=== PATIENT | male | born 1950 | race Caucasian/White ===

== ENCOUNTER 2016-07-23 23:04 | Emergency (ER) | payer MEDICARE, OTHER ==
[2016-07-23] MEDS ORDERED: Aspirin Low Dose CHEW TAB* 81 MG PO ONE (23:18)
[2016-07-23 23:55] LABS: Hematocrit 44 % (42-52); Hemoglobin 14.8 g/dl (14.0-18.0); Mean Corpuscular HGB Conc 34 g/dl (31-36); Mean Corpuscular Hemoglobin 30 pg (27-31); Mean Corpuscular Volume 91 fL (80-94); Mean Platelet Volume 8 um3 (7.4-10.4); Red Blood Count 4.86 10^6/ul (4.0-5.4); Red Cell Distribution Width 13 % (10.5-15)
[2016-07-24] LABS: Albumin 4.1 g/dL (3.2-5.2); BUN/Creatinine Ratio 17.9 (8-20); Calcium 9.5 mg/dL (8.6-10.3); EGFR African American 117.6 (>60); EGFR Non-African American 91.4 (>60); Globulin 2.6 g/dL (2-4); Potassium 3.9 mmol/L (3.5-5.0); Total Bilirubin 0.6 mg/dL (0.2-1.0); Total Protein 6.7 g/dL (6.4-8.9)
--- NOTE | 2016-07-24 01:38 | ED ---
Claus Geller Billy, scribed for Evert Pettit MD on 07/23/16 at 2326 . HPI Chest Pain - HPI Summary HPI Summary: Patient is a 66 year-old male coming to [facility] for evaluation of left anterior chest pain since last night. Patient states that the pain has been constant throughout the day. He describes the pain as "muscle pain," and aches. He denies any serious strenuous activity that may have strained his muscles. He also states that he has lightheadedness with position change as well as tingling in the extremities. PMHx of Lyme disease. - History of Current Complaint Chief Complaint: EDChestPainROMI Time Seen by Provider: 07/23/16 23:22 Hx Obtained From: Patient Onset/Duration: Started Hours Ago, Still Present Timing: Constant Initial Severity: Moderate Current Severity: Moderate Pain Intensity: 4 Pain Scale Used: 0-10 Numeric Chest Pain Location: Left Anterior Chest Pain Radiates: No Character: Dull/Aching Aggravating Factor(s): Position - lightheadedness worse w/ position change Alleviating Factor(s): Rest Associated Signs and Symptoms: Positive: Chest Pain, Tingling, Lightheadedness - Allergy/Home Medications Allergies/Adverse Reactions: Allergies Allergy/AdvReac Type Severity Reaction Status Date / Time No Known Allergies Allergy Verified 06/28/13 16:03 PMH/Surg Hx/FS Hx/Imm Hx Endocrine/Hematology History: Reports: Other Endocrine/Hematological Disorders - lyme disease 2003 Denies: Hx Diabetes Cardiovascular History: Reports: Hx Angina Denies: Other Cardiovascular Problems/Disorders Respiratory History: Denies: Hx Asthma, Hx Chronic Obstructive Pulmonary Disease (COPD) Sensory History: Reports: Hx Contacts or Glasses - reading only Opthamlomology History: Reports: Hx Contacts or Glasses - reading only - Surgical History Surgery Procedure, Year, and Place: inguinal hernia repair (2005,2007) Infectious Disease History: Yes Infectious Disease History: Reports: Hx Shingles Denies: Traveled Outside the [place] in Last 30 Days - Family History Family History: Includes mother with cerebral aneurysm and now dementia in her 90s. Father had an ID in his 70s. He was a smoker but ultimately succumbed to respiratory failure after intra-abdominal catastrophe. He has a sister with celiac disease. No children. - Social History Alcohol Use: Occasionally Substance Use Type: Reports: None Have You Smoked in the Last Year: No Review of Systems Positive: Chest Pain Neurological: Other - lightheaded Positive: Paresthesia All Other Systems Reviewed And Are Negative: Yes Physical Exam Triage Information Reviewed: Yes Vital Signs On Initial Exam: Initial Vitals Temp Pulse Resp BP Pulse Ox 97.2 F 65 16 144/81 100 07/23/16 23:08 07/23/16 23:08 07/23/16 23:08 07/23/16 23:08 07/23/16 23:08 Vital Signs Reviewed: Yes Appearance: Positive: Well-Appearing, No Pain Distress Skin: Positive: Warm Head/Face: Positive: Normal Head/Face Inspection Eyes: Positive: KAYLI ENT: Positive: Hearing grossly normal Neck: Positive: Supple Respiratory/Lung Sounds: Positive: Clear to Auscultation, Breath Sounds Present Cardiovascular: Positive: RRR Abdomen Description: Positive: Nontender, Soft Bowel Sounds: Positive: Present Musculoskeletal: Positive: Strength/ROM Intact Neurological: Positive: Sensory/Motor Intact, Alert, Oriented to Person Place, Time Diagnostics - Vital Signs Vital Signs Temp Pulse Resp BP Pulse Ox 07/23/16 23:22 99 07/23/16 23:08 97.2 F 65 16 144/81 100 - Laboratory Lab Results: Lab Results 07/23/16 07/23/16 07/23/16 Range/Units 23:30 23:30 23:30 WBC 5.0 (3.5-10.8) 10^3/ul RBC 4.86 (4.0-5.4) 10^6/ul Hgb 14.8 (14.0-18.0) g/dl Hct 44 (42-52) % MCV 91 (80-94) fL MCH 30 (27-31) pg MCHC 34 (31-36) g/dl RDW 13 (10.5-15) % Plt Count 175 (150-450) 10^3/ul MPV 8 (7.4-10.4) um3 Neut % (Auto) 64.0 (38-83) % Lymph % (Auto) 24.8 L (25-47) % [place] % (Auto) 9.3 H (1-9) % Eos % (Auto) 1.3 (0-6) % Baso % (Auto) 0.6 (0-2) % Absolute Neuts (auto) 3.2 (1.5-7.7) 10^3/ul Absolute Lymphs (auto) 1.2 (1.0-4.8) 10^3/ul Absolute Monos (auto) 0.5 (0-0.8) 10^3/ul Absolute Eos (auto) 0.1 (0-0.6) 10^3/ul Absolute Basos (auto) 0 (0-0.2) 10^3/ul Absolute Nucleated RBC 0.01 10^3/ul Nucleated RBC % 0.2 INR (Anticoag Therapy) (0.89-1.11) APTT (26.0-36.3) seconds Sodium 136 (133-145) mmol/L Potassium 3.9 (3.5-5.0) mmol/L Chloride 105 (101-111) mmol/L Carbon Dioxide 26 (22-32) mmol/L Anion Gap 5 (2-11) mmol/L BUN 15 (6-24) mg/dL Creatinine 0.84 (0.67-1.17) mg/dL Est GFR ( Amer) 117.6 (>60) Est GFR (Non-Af Amer) 91.4 (>60) BUN/Creatinine Ratio 17.9 (8-20) Glucose 97 (70-100) mg/dL Lactic Acid 0.6 (0.5-2.0) mmol/L Calcium 9.5 (8.6-10.3) mg/dL Total Bilirubin 0.60 (0.2-1.0) mg/dL AST 22 (13-39) U/L ALT 25 (7-52) U/L Alkaline Phosphatase 60 (34-104) U/L CK-MB (CK-2) 1.8 (0.6-6.3) ng/mL Troponin I 0.00 (<0.04) ng/mL Total Protein 6.7 (6.4-8.9) g/dL Albumin 4.1 (3.2-5.2) g/dL Globulin 2.6 (2-4) g/dL Albumin/Globulin Ratio 1.6 (1-3) 07/23/ Range/Units 23:30 WBC (3.5-10.8) 10^3/ul RBC (4.0-5.4) 10^6/ul Hgb (14.0-18.0) g/dl Hct (42-52) % MCV (80-94) fL MCH (27-31) pg MCHC (31-36) g/dl RDW (10.5-15) % Plt Count (150-450) 10^3/ul MPV (7.4-10.4) um3 Neut % (Auto) (38-83) % Lymph % (Auto) (25-47) % [place] % (Auto) (1-9) % Eos % (Auto) (0-6) % Baso % (Auto) (0-2) % Absolute Neuts (auto) (1.5-7.7) 10^3/ul Absolute Lymphs (auto) (1.0-4.8) 10^3/ul Absolute Monos (auto) (0-0.8) 10^3/ul Absolute Eos (auto) (0-0.6) 10^3/ul Absolute Basos (auto) (0-0.2) 10^3/ul Absolute Nucleated RBC 10^3/ul Nucleated RBC % INR (Anticoag Therapy) 1.06 (0.89-1.11) APTT 27.8 (26.0-36.3) seconds Sodium (133-145) mmol/L Potassium (3.5-5.0) mmol/L Chloride (101-111) mmol/L Carbon Dioxide (22-32) mmol/L Anion Gap (2-11) mmol/L BUN (6-24) mg/dL Creatinine (0.67-1.17) mg/dL Est GFR ( Amer) (>60) Est GFR (Non-Af Amer) (>60) BUN/Creatinine Ratio (8-20) Glucose (70-100) mg/dL Lactic Acid (0.5-2.0) mmol/L Calcium (8.6-10.3) mg/dL Total Bilirubin (0.2-1.0) mg/dL AST (13-39) U/L ALT (7-52) U/L Alkaline Phosphatase (34-104) U/L CK-MB (CK-2) (0.6-6.3) ng/mL Troponin I (<0.04) ng/mL Total Protein (6.4-8.9) g/dL Albumin (3.2-5.2) g/dL Globulin (2-4) g/dL Albumin/Globulin Ratio (1-3) Result Diagrams: 07/23/16 23:30 07/23/16 23:30 Lab Statement: Any lab studies that have been ordered have been reviewed, and results considered in the medical decision making process. - Radiology CXR Xray Interpretation: No Acute Changes Radiology Interpretation Completed By: ED Physician - EKG 9159 EKG Interpretation: sinus bradycardia 55 bpm, APCs Re-Evaluation - Re-Evaluation First Eval Change: Improved - pain free, wants to go home Chest Pain Course/Dx - Diagnoses Provider Diagnoses: Chest pain Discharge - Discharge Plan Condition: Stable Disposition: HOME Patient Education Materials: Chest Pain (ED) Referrals: [facility] [Outside] The documentation as recorded by the Claus beltran Billy accurately reflects the service I personally performed and the decisions made by me, Evert Pettit MD.
[2016-07-24 04:01] VITALS: BP 102/61
--- NOTE | 2016-07-24 08:46 | RAD ---
INDICATION: Chest pain COMPARISON: None. TECHNIQUE: Single AP portable view of the chest was obtained. FINDINGS: Image quality is compromised due to the relative inferiority of a portable chest x-ray. The heart and mediastinum exhibit normal size and contour. The lungs are grossly clear. There is no evidence of a large pleural effusion. Visualized bones are normal for the patient's age. IMPRESSION: No radiographic evidence for acute cardiopulmonary abnormality on this portable chest x-ray.
== END 2016-07-24 04:01 | disposition home or self-care (01) ==
LOC: ED 23:04
DX: R07.9 Chest pain, unspecified (principal); R42 Dizziness and giddiness; I20.9 Angina pectoris, unspecified; I49.1 Atrial premature depolarization
CPT/HCPCS: 36415; 71010; 80053; 82553; 83605; 84484; 85025; 85610; 85730; 93005; 99282; A9270-GY

== ENCOUNTER 2016-11-03 14:12 | Emergency (ER) | payer MEDICARE, OTHER ==
--- NOTE | 2016-11-03 15:15 | UC ---
Ear Complaint HPI - HPI Summary HPI Summary: R ear pain starting about a week ago, started very mild. At first thought it was a pimple in his ear canal, now he feels pain behind the ear and in his R cheekbone and eyebrow. No URI sx, no recent swimming, no drainage. - History of Current Complaint Chief Complaint: UCEar Stated Complaint: EAR PAIN Time Seen by Provider: 11/03/16 14:52 Hx Obtained From: Patient Onset/Duration: Gradual Onset, Lasting Days Severity Initially: Mild Severity Currently: Moderate Aggravating Factors: Nothing Alleviating Factors: OTC Meds - ibuprofen - Allergies/Home Medications Allergies/Adverse Reactions: Allergies Allergy/AdvReac Type Severity Reaction Status Date / Time No Known Allergies Allergy Verified 06/28/13 16:03 PMH/Surg Hx/FS Hx/Imm Hx Previously Healthy: No - currently being treated for Lyme - Surgical History Surgical History: Yes Surgery Procedure, Year, and Place: inguinal hernia repair (2005,2007) - Family History Known Family History: Positive: Hypertension Family History: Includes mother with cerebral aneurysm and now dementia in her 90s. Father had an IA in his 70s. He was a smoker but ultimately succumbed to respiratory failure after intra-abdominal catastrophe. He has a sister with celiac disease. No children. - Social History Alcohol Use: Occasionally Substance Use Type: None Smoking Status (MU): Never Smoked Tobacco Have You Smoked in the Last Year: No - Immunization History Most Recent Influenza Vaccination: this season Most Recent Tetanus Shot: 2008 Most Recent Pneumonia Vaccination: n/a Review of Systems Constitutional: Negative Skin: Negative Eyes: Negative ENT: Ear Ache Respiratory: Negative Cardiovascular: Negative Gastrointestinal: Negative Genitourinary: Negative Motor: Negative Neurovascular: Negative Musculoskeletal: Negative Neurological: Negative Psychological: Negative All Other Systems Reviewed And Are Negative: Yes Physical Exam Triage Information Reviewed: Yes Appearance: Well-Appearing, No Pain Distress, Well-Nourished Vital Signs: Initial Vital Signs Temp 98 F 11/03/16 14:18 Pulse 52 11/03/16 14:18 Resp 16 11/03/16 14:18 Pulse Ox 100 11/03/16 14:18 Vital Signs Reviewed: Yes Eye Exam: Normal Eyes: Positive: Conjunctiva Clear ENT: Positive: Hearing grossly normal, Pharynx normal, TMs normal, Other: - pain over R TMJ and R eustachian tube. Negative: TM bulging, TM dull, TM red, Tonsillar swelling, Tonsillar exudate Dental Exam: Normal Dental: Negative: Percussion Tenderness @, Gross Decay/Caries @, Dental Fracture @ Neck exam: Normal Neck: Positive: Supple, Nontender, No Lymphadenopathy Respiratory Exam: Normal Respiratory: Positive: Chest non-tender, Lungs clear, Normal breath sounds, No respiratory distress, No accessory muscle use Cardiovascular Exam: Normal Cardiovascular: Positive: RRR, No Murmur Musculoskeletal Exam: Normal Neurological Exam: Normal Neurological: Positive: Alert Psychological Exam: Normal Skin Exam: Normal Ear Complaint Course/Dx - Differential Dx/Diagnosis Provider Diagnoses: R otalgia. R TMJ pain Discharge - Discharge Plan Condition: Stable Disposition: HOME Patient Education Materials: Temporomandibular Disorder (ED) Referrals: No Primary Care Phys,NOPCP [Primary Care Provider] - Additional Instructions: As we discussed, I see no problems in her ear drum or ear canal. TMJ pain frequently presents as ear pain, so this is my diagnosis. Continue to take the ibuprofen and maintain a low or no-chewing diet until the pain resolves. Please come back or see your primary care provider if you have new rash, discharge, worsening symptoms, fever, or other problems.
== END 2016-11-03 15:19 | disposition home or self-care (01) ==
LOC: UCEAST 14:12
DX: H92.01 Otalgia, right ear (principal); M26.621 Arthralgia of right temporomandibular joint; A69.20 Lyme disease, unspecified
CPT/HCPCS: 99211; G0463

== ENCOUNTER 2017-05-14 17:40 | Emergency (ER) | payer MEDICARE, OTHER ==
[2017-05-14 18:19] LABS: ABS Basophils 0 10^3/ul (0-0.2); ABS Eosinophils 0 10^3/ul (0-0.6); ABS Lymphocytes 0.9 10^3/ul (1.0-4.8); ABS Monocytes 0.3 10^3/ul (0-0.8); ABS Neutrophils 2.8 10^3/ul (1.5-7.7); ABS Nucleated RBC 0 10^3/ul; Eosinophil % 0.9 % (0-6); Hematocrit 43 % (42-52); Lymphocyte % 21.2 % (25-47); Mean Corpuscular HGB Conc 35 g/dl (31-36); Mean Corpuscular Hemoglobin 31 pg (27-31); Mean Corpuscular Volume 90 fL (80-94); Mean Platelet Volume 8 um3 (7.4-10.4); Nucleated Red Blood Cells % 0.1; Platelet Count 169 10^3/ul (150-450); Red Blood Count 4.82 10^6/ul (4.0-5.4); Red Cell Distribution Width 13 % (10.5-15)
[2017-05-14 18:25] LABS: INR 1.13 (0.77-1.02)
[2017-05-14 18:34] LABS: EGFR Non-African American 91.1 (>60)
--- NOTE | 2017-05-14 19:14 | RAD ---
Indication: Chest pain. Single frontal view of the chest performed at 1833 hours. was reviewed. Comparison is made with previous exam dated July 23, 2016. No mediastinal shift is noted. Heart is of normal size and configuration. Lung eugene appear clear. Calcified granuloma in the left upper lobe remains unchanged. IMPRESSION: NO ACTIVE CARDIOPULMONARY DISEASE IS NOTED.
[2017-05-14] MEDS ORDERED: Aspirin Low Dose CHEW TAB* 81 MG PO ONE (19:40)
[2017-05-14] MEDS ORDERED: Acetaminophen TAB* 325 MG PO PRN (20:47)
[2017-05-14] MEDS ORDERED: Nitroglycerin TAB 0.4 MG* 0.4 MG TAB SL PRN (20:47)
[2017-05-14] MEDS ORDERED: Heparin VIAL(*) 5000 UNITS/ML VIAL (FIVE THOUSAND) SUBCUT SCH (21:00)
[2017-05-14] MEDS ORDERED: Nitroglycerin 2% OINT* 1 GM PAK TOPICAL ONE (21:18)
[2017-05-14] MEDS ORDERED: Nitroglycerin 2% OINT* 1 GM PAK ONE (21:20)
--- NOTE | 2017-05-14 22:10 | ED ---
Keenan Geller Julia, scribed for Eleanor De Los Santos MD on 05/14/17 at 2037 . HPI Chest Pain - HPI Summary HPI Summary: This patient is a 67 year old M presenting to [facility] accompanied by with a chief complaint of an increase in intermittent worsening L anterior CP with dizziness that has been occurring since 04/21/17. Symptoms worsening today at 9: 00 until 15:00 . At 15:00 pressure like pain intensified and spread across chest for 15 minutes. Pain currently feels like a cold lump. The patient rates the pain 2/10 in severity currently, at worst 5/10. Symptoms aggravated by nothing. Symptoms alleviated by sleep. Patient reports mild nausea improved with eating. Patient denies SOB, diaphoresis. Patient began feeling dizzy when walking on 04/21/17, symptoms did not improve after rest and water. Two hours later symptoms worsened and he felt exhausted, he went to Emergency Department , and had enzyme tests performed. Weakness and dizziness continued for past few weeks. Patient had a positive echo stress test on 05/08/17 and a carotid US on 05/09/17 at [place]. Tests revealed inferolateral ischemia consistent with circumflex ischemia. Patient has cholesterol of 141, is relatively sedentary. Patient has history of Lyme disease, most recently from November 2015 to November 2016, and syncopal events. Pt is scheduled for cardiac catheterization at [facility] on 05/16/[address] Godinez. Pt called Dr. Godinez prior to coming to [facility], but decided to come to [facility] for evaluation. - History of Current Complaint Chief Complaint: EDChestPainROMI Time Seen by Provider: 05/14/17 19:30 Hx Obtained From: Patient, Medical Records - [place] stress test reviewed on pt' s laptop Onset/Duration: Started Hours Ago - worsened this am 0900, Started Weeks Ago, Still Present Time of Onset: 15:00 Timing: Intermittent Initial Severity: Moderate Current Severity: Mild Pain Intensity: 2 Pain Scale Used: 0-10 Numeric Chest Pain Location: Left Anterior Chest Pain Radiates: No Character: Pressure/Squeezing, Other: - "cold lump" Aggravating Factor(s): Nothing Alleviating Factor(s): Rest Associated Signs and Symptoms: Positive: Weakness, Dizziness - Risk Factors AMI/ACS Risk Factors: Sedentary Lifestyle, Family History - father with pacer, no NH - Allergy/Home Medications Allergies/Adverse Reactions: Allergies Allergy/AdvReac Type Severity Reaction Status Date / Time No Known Allergies Allergy Verified 05/14/17 17:46 PMH/Surg Hx/FS Hx/Imm Hx Endocrine/Hematology History: Reports: Other Endocrine/Hematological Disorders - Lyme disease 2003, 2015 Denies: Hx Diabetes Cardiovascular History: Reports: Hx Angina Denies: Other Cardiovascular Problems/Disorders Respiratory History: Denies: Hx Asthma, Hx Chronic Obstructive Pulmonary Disease (COPD) Musculoskeletal History: Reports: Other Musculoskeletal History Sensory History: Reports: Hx Contacts or Glasses - reading only Opthamlomology History: Reports: Hx Contacts or Glasses - reading only Neurological History: Reports: Other Neuro Impairments/Disorders - syncope - Surgical History Surgery Procedure, Year, and Place: inguinal hernia repair (2005,2007) Infectious Disease History: Yes - Lyme disease Infectious Disease History: Reports: Hx Shingles Denies: Hx Clostridium Difficile, Hx Hepatitis, Hx Human Immunodeficiency Virus (HIV), Hx of Known/Suspected MRSA, Hx Tuberculosis, Hx Known/Suspected VRE , Hx Known/Suspected VRSA, History Other Infectious Disease, Traveled Outside the [place] in Last 30 Days - Family History Known Family History: Positive: Cardiac Disease - paternal - pacemaker, Other Family History: Includes mother with cerebral aneurysm and now dementia in her 90s. Father had a pacer placed in his 70s. He was a smoker but ultimately succumbed to respiratory failure after intra-abdominal catastrophe. He has a sister with celiac disease. No children. - Social History Occupation: Retired Lives: With Family Alcohol Use: Occasionally Substance Use Type: Reports: None Hx Tobacco Use: Yes - 5 pack years in his twenties Smoking Status (MU): Former Smoker Have You Smoked in the Last Year: No Review of Systems Negative: Skin Diaphoresis Positive: Chest Pain Negative: Shortness Of Breath Positive: Nausea - mild Skin: Negative Positive: Weakness - and dizziness Psychological: Normal All Other Systems Reviewed And Are Negative: Yes Physical Exam - Summary Physical Exam Summary: Appearance: Alert, mild pain distress, Well-nourished Skin: Warm, color reflects adequate perfusion Head: Normal Head/Face inspection Eyes: Conjunctiva clear, EOMI ENT: Normal inspection Neck: Supple, no nodes, no JVD, no bruits Respiratory: Lungs clear, Normal breath sounds, no respiratory distress Cardio: RRR, No murmur, pulses normal, brisk capillary refill, chest pain is not reproducible on palpation Abdomen: soft, nontender, no masses Bowel sounds: present Musculoskeletal: Strength Intact/ ROM intact. No calf tenderness. No edema. No lymph node abnormalities Neuro: Alert, muscle tone normal, facial symmetry, speech normal, sensory/motor intact Psychological: Normal Triage Information Reviewed: Yes Vital Signs On Initial Exam: Initial Vitals Temp Pulse Resp BP Pulse Ox 98.3 F 64 16 127/66 100 05/14/17 17:46 05/14/17 17:46 05/14/17 17:46 05/14/17 17:46 05/14/17 17:46 Vital Signs Reviewed: Yes - [place] Coma Scale Coma Scale Total: 15 Diagnostics - Vital Signs Vital Signs Temp Pulse Resp BP Pulse Ox 05/14/17 18:30 61 8 117/70 100 05/14/17 18:23 100 05/14/17 18:04 58 100 05/14/17 18:02 122/66 05/14/17 17:46 98.3 F 64 16 127/66 100 - Laboratory Lab Results: Lab Results 05/14/17 05/14/17 05/14/17 Range/Units 18:12 18:12 18:12 WBC 4.0 (3.5-10.8) 10^3/ul RBC 4.82 (4.0-5.4) 10^6/ul Hgb 15.0 (14.0-18.0) g/dl Hct 43 (42-52) % MCV 90 (80-94) fL MCH 31 (27-31) pg MCHC 35 (31-36) g/dl RDW 13 (10.5-15) % Plt Count 169 (150-450) 10^3/ul MPV 8 (7.4-10.4) um3 Neut % (Auto) 68.7 (38-83) % Lymph % (Auto) 21.2 L (25-47) % [place] % (Auto) 8.6 (1-9) % Eos % (Auto) 0.9 (0-6) % Baso % (Auto) 0.6 (0-2) % Absolute Neuts (auto) 2.8 (1.5-7.7) 10^3/ul Absolute Lymphs (auto) 0.9 L (1.0-4.8) 10^3/ul Absolute Monos (auto) 0.3 (0-0.8) 10^3/ul Absolute Eos (auto) 0 (0-0.6) 10^3/ul Absolute Basos (auto) 0 (0-0.2) 10^3/ul Absolute Nucleated RBC 0 10^3/ul Nucleated RBC % 0.1 INR (Anticoag Therapy) 1.13 H (0.77-1.02) Sodium 138 (133-145) mmol/L Potassium 3.7 (3.5-5.0) mmol/L Chloride 107 (101-111) mmol/L Carbon Dioxide 25 (22-32) mmol/L Anion Gap 6 (2-11) mmol/L BUN 10 (6-24) mg/dL Creatinine 0.84 (0.67-1.17) mg/dL Est GFR ( Amer) 117.2 (>60) Est GFR (Non-Af Amer) 91.1 (>60) BUN/Creatinine Ratio 11.9 (8-20) Glucose 98 (70-100) mg/dL Lactic Acid (0.5-2.0) mmol/L Calcium 9.0 (8.6-10.3) mg/dL Total Bilirubin 0.70 (0.2-1.0) mg/dL AST 11 L (13-39) U/L ALT 16 (7-52) U/L Alkaline Phosphatase 45 (34-104) U/L Troponin I 0.00 (<0.04) ng/mL Total Protein 6.1 L (6.4-8.9) g/dL Albumin 3.8 (3.2-5.2) g/dL Globulin 2.3 (2-4) g/dL Albumin/Globulin Ratio 1.7 (1-3) TSH 1.04 (0.34-5.60) mcIU/mL 05/14/17 Range/Units 18:12 WBC (3.5-10.8) 10^3/ul RBC (4.0-5.4) 10^6/ul Hgb (14.0-18.0) g/dl Hct (42-52) % MCV (80-94) fL MCH (27-31) pg MCHC (31-36) g/dl RDW (10.5-15) % Plt Count (150-450) 10^3/ul MPV (7.4-10.4) um3 Neut % (Auto) (38-83) % Lymph % (Auto) (25-47) % [place] % (Auto) (1-9) % Eos % (Auto) (0-6) % Baso % (Auto) (0-2) % Absolute Neuts (auto) (1.5-7.7) 10^3/ul Absolute Lymphs (auto) (1.0-4.8) 10^3/ul Absolute Monos (auto) (0-0.8) 10^3/ul Absolute Eos (auto) (0-0.6) 10^3/ul Absolute Basos (auto) (0-0.2) 10^3/ul Absolute Nucleated RBC 10^3/ul Nucleated RBC % INR (Anticoag Therapy) (0.77-1.02) Sodium (133-145) mmol/L Potassium (3.5-5.0) mmol/L Chloride (101-111) mmol/L Carbon Dioxide (22-32) mmol/L Anion Gap (2-11) mmol/L BUN (6-24) mg/dL Creatinine (0.67-1.17) mg/dL Est GFR ( Amer) (>60) Est GFR (Non-Af Amer) (>60) BUN/Creatinine Ratio (8-20) Glucose (70-100) mg/dL Lactic Acid 0.6 (0.5-2.0) mmol/L Calcium (8.6-10.3) mg/dL Total Bilirubin (0.2-1.0) mg/dL AST (13-39) U/L ALT (7-52) U/L Alkaline Phosphatase (34-104) U/L Troponin I (<0.04) ng/mL Total Protein (6.4-8.9) g/dL Albumin (3.2-5.2) g/dL Globulin (2-4) g/dL Albumin/Globulin Ratio (1-3) TSH (0.34-5.60) mcIU/mL Result Diagrams: 05/14/17 18:12 05/14/17 18:12 Lab Statement: Any lab studies that have been ordered have been reviewed, and results considered in the medical decision making process. - Radiology CXR Radiology Interpretation Completed By: Radiologist - NO ACTIVE CARDIOPULMONARY DISEASE IS NOTED. ED Physician has reviewed this report. - EKG 17:54 Cardiac Rate: Bradycardia EKG Rhythm: Sinus Rhythm - at [address] Segment: Non-Specific Ectopy: None EKG Interpretation: nml AVIVCT nml QTc nml axis EKG Comparison: No Significant Change - 07/23/16 Re-Evaluation - Re-Evaluation First Eval Re-Evaluation Time: 21:30 - feels the discomfort lifting with the nitropaste. BP decreased to 100's systolic. Change: Improved Second Eval Re-Evaluation Time: 22:00 - [facility] is here for transfer. pt is pain free BP 109/60 Change: Unchanged Chest Pain Course/Dx - Course Course Of Treatment: Discussed with pt options for further evaluation. Pt had chosen to be catheterized at [facility], so that he would have the option of cardiothoracic surgery if indicated at the time of catheterization. He has confidence in Dr. Godinez and chose him as his physician. Discussed that pt could be transferred to [place] at patient's request, but that there is a per mile charge by the ambulance to be transported to a facility that is not the closest facility that is capable of performing the service indicated. Cardiac cath is available at [facility], but cardiothoracic surgery is not available at [facility]. Pt and choose to be transferred to [place] at their expense for mileage if indicated. They ask that I contact Dr. Godinez service custodial operations manager. At 21:05 Dr. Crcoker, the cardiac intervention fellow custodial operations manager at [facility] returned our call, and will inform Dr. Hunter, warehouse analyst custodial operations manager. Dr. Crocker recomends calling [facility]. At 21:10, Roxann at transfer center states she will call Dr. Hunter. At 21:21 Dr Hwang custodial operations manager for cardiology with Dr. Hunter accepts patient in transfer. Pt was given ASA 324 chewed in [facility] ED. Given 0.5 inch nitropaste at 21:21 with "lifting" of his chest discomfort. - Chest Pain Differential Diagnosis/HQI/PQRI: Acute NH, ACS, Angina - Diagnoses Provider Diagnoses: Unstable angina, Chest pain - Provider Notifications Instructed by Provider To: Transfer - Dr. Crocker covering Dr. Godinez, Dr. Hwang cardiology at [facility] Reason For Transfer: Other: - Pt chooses to be transferred to [facility] in [facility], where his physician has him scheduled for a cardiac catheterization. - Critical Care Time Critical Care Time: 30-74 min - 30 mins Discharge - Discharge Plan Condition: Stable Disposition: ADMITTED TO OTHER HOSPITAL Discharge Disposition Comment: [facility] Referrals: No Primary Care Phys,NOPCP [Primary Care Provider] - Ivan Ko MD [Medical Doctor] - The documentation as recorded by the Keenan beltran Julia accurately reflects the service I personally performed and the decisions made by me, Eleanor De Los Santos MD.
[2017-05-14 22:22] VITALS: BP 114/51
== END 2017-05-14 22:22 | disposition short-term general hospital (02) ==
LOC: ED 17:40
DX: I20.0 Unstable angina (principal); R53.1 Weakness; R42 Dizziness and giddiness; R07.9 Chest pain, unspecified; Z87.891 Personal history of nicotine dependence
CPT/HCPCS: 36415; 71045; 80053; 83605; 84443; 84484; 85025; 85610; 93005; 99284; A9270-GY